=== PATIENT | male | born 1965 | race Caucasian/White ===

== ENCOUNTER 2016-07-09 14:25 | Outpatient (CLI) | payer BC ==
[~2016-07-09 14:25] MED LIST: ACID REDUCER PO; ALLER-CLEAR PO; ATORVASTATIN CA40 MG PO; COUMADIN5 MG PO; FLECAINIDE ACE150 MG PO; GLIMEPIRIDE2 MG PO; GLYBURIDE5 MG PO; LOSARTAN POTAS100 MG PO; LOVENOX40 MG/0.4 SC; METOPROLOL SUC100 MG PO; NORCO1 TA1 PO; OMEPRAZOLE20 M1 PO; VITAMIN D-31000 UNIT PO
--- NOTE | 2016-07-09 15:20 | DIAGNOSTIC IMAGING REPORT ---
PROCEDURE: XR RIBS UNILAT W/PA CHEST-RT INDICATION: RIGHT FLANK PAIN,DIABETES TYPE 2,HYPERTENSION TECHNIQUE: Two views of the right ribs with single PA view chest. COMPARISON: Chest dated 11/12/2014 FINDINGS: RIGHT RIBS: There is an old healed fracture of the right 11th rib. Cannot exclude a new fracture through the callous. CHEST: Normal cardiomediastinal contour. Clear lungs without pleural effusion, pneumothorax, or contusion. The other visible osseous structures are intact. IMPRESSION: 1. Possible break in the cortex with a new incomplete fracture through the callous involving the old fracture of the right 11th rib. 2. Normal chest without radiographic evidence of trauma.
== END 2016-07-09 23:00 ==
LOC: XR SRH 14:25
DX: R10.9 Unspecified abdominal pain (principal); E11.9 Type 2 diabetes mellitus without complications; I10 Essential (primary) hypertension